=== PATIENT | male | born 1945 | race Caucasian/White ===

== ENCOUNTER 2018-01-21 22:26 | Inpatient (IN) | payer MEDICARE, MEDICAID ==
--- NOTE | 2018-01-21 22:55 | ED Physician Chart ---
ED Chief Complaint/HPI - Patient Information Date Seen:: 01/21/18 Time Seen:: 22:30 Chief Complaint:: Agitation History of Present Illness:: onset x 2 days of agitation and aggressive behavior; no report of trauma, SIs, H /As, S/T, neck pain, C/P, SOB, Abd. Pain, A/N/V/D/C, fever, chills, or urinary s /s Allergies:: Allergies Allergy/AdvReac Type Severity Reaction Status Date / Time hydrocodone Allergy Verified 01/21/18 22:42 Vitals:: Vital Signs - 8 hr 01/21/18 22:30 Temp 98 F HR 72 RR 18 BP 132/76 O2 Sat % 97 Historian:: Patient, EMS Review:: Nurse's Note Reviewed, Old Chart Reviewed, EMS run form Reviewed ED Review of Systems - Review of Systems General/Constitutional: No fever, No chills, No weight loss, No weakness, No diaphoresis, No edema, No loss of appetite Skin: No skin lesions, No rash, No bruising Head: No headache, No light-headedness Eyes: No loss of vision, No pain, No diplopia ENT: No earache, No nasal drainage, No sore throat, No tinnitus Neck: No neck pain, No swelling, No thyromegaly, No stiffness, No mass noted Cardio Vascular: No chest pain, No palpitations, No PND, No orthopnea, No edema Pulmonary: No SOB, No cough, No sputum, No wheezing GI: No nausea, No vomiting, No diarrhea, No pain, No melena, No hematochezia, No constipation, No hematemesis G/U: No dysuria, No frequency, No hematuria, No nacturia Musculoskeletal: No bone or joint pain, No back pain, No muscle pain Endocrine: No polyuria, No polydipsia Psychiatric: Prior psych history, Depression, Anxiety, No suicidal ideation, No homicidal ideation, No auditory hallucination, No visual hallucination Hematopoietic: No bruising, No lymphadenopathy Allergic/Immuno: No urticaria, No angioedema Neurological: No syncope, No focal symptoms, No weakness, No paresthesia, No headache, No seizure, No dizziness, No confusion, No vertigo ED Past Medical History - Past Medical History Obtainable: Yes Past Medical History: No significant medical hx, Dyslipidemia Family History: HTN Social History: Non Smoker, No Alcohol, No Drug Use, Single, Care Facility Surgical History: None Psychiatricy History: Depression, Bipolar Medication: Reviewed Family Medical History - Family Member Mother History Unknown: Yes ED Physical Exam - Physical Examination General/Constitutional: Awake, Well-developed, well-nourished, Alert, No distress, GCS 15, Non-toxic appearing, Ambulatory Head: Atraumatic Eyes: Lids, conjuctiva normal, PERRL, EOMI Skin: Nl inspection, No rash, No skin lesions, No ecchymosis, Well hydrated, No lymphadenopathy ENMT: External ears, nose nl, TM canals nl, Nasal exam nl, Lips, teeth, gums nl , Oropharynx nl, Tonsils nl Neck: Nontender, Full ROM w/o pain, No JVD, No nuchal rigidity, No bruit, No mass, No stridor Respiratory: Nl effort/Exclusion, Clear to Auscultation, No Wheeze/Rhonchi/Rales Cardio Vascular: RRR, No murmur, gallop, rubs, NL S1 S2, Carotid/Femoral/Distal pulses equal bilaterally GI: No tenderness/rebounding/guarding, No organomegaly, No hernia, Normal BS's, Nondistended, No mass/bruits, No McBurney tenderness : No CVA tenderness Extremities: No tenderness or effusion, Full ROM, normal strength in all extremities, No edema, Normal digits & nails Neuro/Psych: Alert/oriented, DTR's symmetric, Normal sensory exam, Normal motor strength, Judgement/insight normal, Mood normal, Normal gait, No focal deficits Other Neuro/Psych comments:: + Psychomotor Agitation; no SIs; Mood/Affect: Labile Misc: Normal back, No paraspinal tenderness ED Labs/Radiology/EKG Results - Lab Results Comments:: Reviewed - EKG Interpretations EKG Time:: 22:52 Rate & Rhythm: 78; NSR Comments:: non-specific st-t changes ED Septic Shock - . Is Septic Shock (SBP<90, OR Lactate>4 mmol\L) present?: No - <6hrs of presentation: Vital Signs: Vital Signs - 8 hr 01/21/18 22:30 Temp 98 F HR 72 RR 18 BP 132/76 O2 Sat % 97 ED Reassessment (Disposition) - Reassessment Reassessment Condition:: Improved - Diagnosis Diagnosis:: Agitation; Medical Clearance; Psychosis; Bipolar Disorder - Aftercare/Follow up Instructions Aftercare/Follow-Up Instructions:: Counseled pt regarding lab results/diagnosis & need follow up, Counseled pt & family regarding lab results/diagnosis & need follow up - Patient Disposition Discharge/Transfer:: Acute Care w/in this hosp Admitted to:: [facility] Condition at Disposition:: Stable, Improved
[2018-01-21 23:14] LABS: % BASOPHILS 1.4 % (0.0-2.0); % EOSINOPHILS 2.5 % (0.0-5.0); % LYMPHOCYTES 25.3 % (20.0-50.0); % MONOCYTES 6.1 % (2.0-10.0); % NEUTROPHILS 64.7 % (40.0-80.0); BASOPHILE ABSOLUTE 0.1 Th/cumm (0-0.2); EOSINOPHILE ABSOLUTE 0.2 Th/cmm (0.1-0.4); HEMATOCRIT 39.5 % (41.0-60); HEMOGLOBIN 13.5 gm/dL (12-16); LYMPHOCYTE ABSOLUTE 1.7 Th/cmm (1.5-3.0); MEAN CELL VOLUME 89.3 fl (80-99); MEAN CORPUSCULAR HEMOGLOBIN 30.5 pg (27.0-31.0); MEAN CORPUSCULAR HGB CONC 34.1 pg (28.0-36.0); MEAN PLATELET VOLUME 7.2 fl; MONOCYTE ABSOLUTE 0.4 Th/cmm (0.3-1.0); NEUTROPHILE ABSOLUTE 4.3 Th/cmm (1.8-8.0); PLATELET COUNT 311 Th/cmm (150-400); RED BLOOD COUNT 4.43 Mil/cmm (3.80-5.80); RED CELL DISTRIBUTION WIDTH 14.8 % (11.5-20.0); WHITE BLOOD COUNT 6.7 Th/cmm (4.8-10.8)
[2018-01-21 23:26] LABS: ALB/GLOB RATIO 1.1 (1.0-1.8); ALBUMIN 4.5 gm/dL (4.2-5.5); ALKALINE PHOSPHATASE 173 U/L (34-104); ANION GAP 12.9 (7.0-16.0); BILIRUBIN,TOTAL 0.4 mg/dL (0.3-1.0); BUN - UREA NITROGEN 19 mg/dL (7-25); CARBON DIOXIDE 26.7 mEq/L (21.0-31.0); CHLORIDE 100 mEq/L (98-107); CREATININE - SERUM 0.9 mg/dL (0.7-1.3); GLUCOSE 108 mg/dL (70-105); POTASSIUM SERUM 3.6 mEq/L (3.5-5.1); SGOT 19 U/L (13-39); SGPT/ALT 24 U/L (7-52); SODIUM SERUM 136 mEq/L (136-145); TOTAL PROTEIN,SERUM 8.5 gm/dL (6.0-8.3)
[2018-01-21 23:27] LABS: ACETAMINOPHEN < 10.0 ug/mL (10.0-30.0); CHOLESTEROL 105 mg/dL (<200); HDL -HIGH DENSITY LIPOPROTEIN 29 mg/dL (23-92); SALICYLATES (ASPIRIN) < 25.0 mg/L (30.0-100.0); TRIGLYCERIDES 208 mg/dL (<150)
[2018-01-22 00:40] VITALS: BP 134/74
[2018-01-22] MEDS ORDERED: Magnesium Hydroxide (MOM) 30 mL UDC PO PRN ×2 (00:42→02:14)
[2018-01-22] MEDS ORDERED: Maalox 30 mL Cup PO PRN (00:42)
[2018-01-22] MEDS ORDERED: Non-Formulary Item 1 EA (Clonidine Hcl [Clonidine Hcl Er] 0.1 MG) PO PRN (02:14)
[2018-01-22] MEDS ORDERED: [UNRECOGNIZED DRUG - OTHER] PO SCH (09:00)
[2018-01-22] MEDS ORDERED: Non-Formulary Item 1 EA (Atorvastatin Calcium [Lipitor] 40 MG) PO SCH (09:00)
[2018-01-22] MEDS ORDERED: BORAGE PO SCH (09:00)
[2018-01-22] MEDS ORDERED: FISH OIL PO SCH (09:00)
[2018-01-22] MEDS ORDERED: FLAX PO SCH (09:00)
[2018-01-22] MEDS: Multivitamin Tab PO SCH (09:12)
--- NOTE | 2018-01-22 12:29 | History & Physical ---
ADMIT DATE: 01/22/2018 PATIENT'S IDENTIFICATION: A 72-year-old male. CHIEF COMPLAINT: "I am fine." HISTORY SOURCE: Talking to the Emergency Room MD, reviewing the chart, as well as reviewing the long-term records. HISTORY OF PRESENT ILLNESS: A 72-year-old [place] male who is a resident of [facility], brought into the Emergency Room at [facility] for increasing agitation with aggressive behavior. The patient was worked up in the ER and subsequently admitted to Geropsych Unit under Dr. Cordova's care. PAST MEDICAL HISTORY: Remarkable for: 1. Hypertension. 2. CVA with left-sided weakness. 3. DJD. 4. History of GERD. 5. Dysphagia after cerebrovascular accident. 6. Hyperlipidemia. 7. Depression. 8. Psychotic disorder. MEDICATIONS AT HOME: The patient is taking atorvastatin, amlodipine, clonidine, Colace, duloxetine, Pepcid, gabapentin, milk of magnesia, multivitamin, nitroglycerin, omega 3, promethazine DM, Tums, and Tylenol. ALLERGIES: The patient is allergic to HYDROCODONE. SOCIAL HISTORY: He is a resident of long-term. The patient does not smoke, does not drink. FAMILY MEDICAL HISTORY: Remarkable for hypertension. REVIEW OF SYSTEMS: Limited, though the patient denies any chest pain, shortness of breath, palpitation, dizziness, nausea, vomiting, diarrhea. No hematuria, hematochezia, melena. No history of any seizure or syncopal episode. PHYSICAL EXAMINATION: GENERAL: A 72-year-old alert, awake, lying in the bed without any acute distress. VITAL SIGNS: Temperature 98, pulse is 72, respiratory rate is 18, blood pressure 132/76. HEENT: Normocephalic, atraumatic. Extraocular muscles are intact. Tongue was pink and coated. Poor dentition noted. No oral lesions noted. No exudate. No sinus tenderness. NECK: Supple, no JVD, no hepatojugular reflex. No lymphadenopathy, thyromegaly, or carotid bruit. HEART: Both heart sounds are regular. Grade 2/6 systolic murmur noted. CHEST AND LUNGS: Equal in expansion, no expiratory wheezing. ABDOMEN: Soft. No guarding, no rigidity. Liver and spleen are not palpable. No palpable mass. EXTREMITIES: No edema, no cyanosis. Peripheral pulses are +1. No calf tenderness noted. NEUROLOGIC: Alert, awake, follows commands. Mild facial droop noted on the left side. Left-sided weakness and spasticity noted. Hyperreflexia on the left side noted. Babinski's, left foot is going down. AVAILABLE DIAGNOSTIC DATA: Remarkable for white count of 6.7, hemoglobin 13.5, platelet count 311. Chemistry panels are within normal limit. Total protein of 8.5. triglycerides of 208, TSH 0.81, salicylate level and Tylenol level was less than 25 and 110. EKG is normal sinus rhythm with Q-wave in anterior leads consistent with old infarct noted. Chest x-ray is unavailable for my review. CLINICAL IMPRESSIONS: 1. Psychotic disorder exacerbation. 2. Hypertension. 3. Hyperlipidemia. 4. Coronary artery disease. 5. History of cerebrovascular accident with left-sided weakness. 6. Degenerative joint disease. 7. Dysphagia. 8. Depression. 9. High risk for fall. 10. Slightly elevated total protein. PLAN: 1. Psychiatric evaluation and management deferred to psychiatrist. 2. The patient is to resume his home medications for medical problem, which includes amlodipine, atorvastatin, clonidine, duloxetine, gabapentin along with p.r.n. nitroglycerin along with symptoms management and famotidine for GERD. Psychiatric evaluation and management has been deferred to psychiatrist. Fall precaution will be given. Dysphagia diet will be provided and we will continue to follow this patient during the stay in the hospital. I sincerely thank you, Dr. Cordova, for giving me the opportunity to participate in patient of yours. [facility]# [id number]
[2018-01-22] MEDS ORDERED: Menthol/Methyl Salicylate Cream TP PRN (14:19)
--- NOTE | 2018-01-22 19:37 | Psychiatric Evaluation ---
DATE OF SERVICE: 01/22/2018 JUSTIFICATION FOR HOSPITALIZATION: Agitation, aggressive behaviors at the care home. CHIEF COMPLAINT: "I don't know why I am here." HISTORY OF PRESENT ILLNESS: A 72-year-old male, quite confused, AO to name. He knows he is in the hospital. He does not know the year, the month or why he is here. The patient states he feels "sad," attesting to poor sleep, fair appetite. He is eating when I see him. Per nursing notes, he has been somewhat calm, but confused. Slept about 5 hours. No behavioral outbursts. The patient coming in due to increased agitation. correction unable to care for him because of his agitation. PAST PSYCHIATRIC HISTORY: It seems he is demented. FAMILY HISTORY: Noncontributory. SOCIAL HISTORY: Born in [facility]. . No kids. MEDICATIONS: Noted. MENTAL STATUS EXAMINATION: Stated age. Fair eye contact. Mood "okay." Affect flat. Thought processes were disengaged and confused. No SI, no HI. No current psychotic symptoms. Insight and judgment seemed diminished. Poor impulse control. PROVISIONAL DIAGNOSES: Concerns for dementia; mood, unspecified; anxiety, unspecified; psychosis, unspecified. Under medical, please see full H and P. ESTIMATED LENGTH OF STAY: 7-10 days. Pain, no pain at this time. ASSESSMENT: The patient is aggressive, combative, impulsive, and unpredictable. PLAN: Continue to monitor, increase collateral. Monitor for any behavioral outbursts. CONDITIONS FOR DISCHARGE: Improved mood, improved affect, cessation of any SI or HI, which he does not exhibit at this time. Better control of any agitation. [facility]# [id number]
[2018-01-22] MEDS ORDERED: Non-Formulary Item 1 EA (Gabapentin [Gabapentin] 600 MG) PO SCH (21:00)
[2018-01-23] MEDS: Multivitamin Tab PO SCH (08:35)
[2018-01-23] MEDS: Fish Oil 1,000 MG SGL PO SCH (08:39)
--- NOTE | 2018-01-23 18:06 | Progress Notes ---
DATE: 01/23/2018 SUBJECTIVE: The patient in the hospital, he has been combative, agitated. He knows he is in the hospital. He does not really know why he is in the hospital. He does know the year, the month. He appears quite disoriented, distracted, making some nonsensical comments. Slept for about 6-1/2 hours, noted to be calm right now, but intermittently confused, remains impulsive, unpredictable, mostly in his room. ASSESSMENT: The patient remains symptomatic, can become agitated, highly impulsive, confused. Medications were noted. PLAN: We will continue to monitor. Ongoing safety concerns. Given ongoing symptoms, he is not currently safe for a lower level of care. [facility]# [id number]
[2018-01-24] MEDS: Fish Oil 1,000 MG SGL PO SCH (08:49)
[2018-01-24] MEDS: Multivitamin Tab PO SCH (08:50)
--- NOTE | 2018-01-24 09:28 | Progress Notes ---
DATE: 01/23/2018 IDENTIFICATION: The patient is a 72-year-old male. SUBJECTIVE: The patient seen and examined. The patient is lying in the bed. On exam, no new event. Discussed with nursing staff about the treatment plan. OBJECTIVE: VITAL SIGNS: Temperature 98.5, pulse 72, respiratory rate 18, blood pressure 146/90. HEENT: No facial asymmetry. NECK: Supple, no JVD. HEART: Regular. CHEST AND LUNGS: Equal in expansion, no expiratory wheezing. ABDOMEN: Soft. No guarding. No rigidity. Bowel sounds are present. No palpable mass. EXTREMITIES: No edema. NEUROLOGIC: Left-sided weakness noted. CLINICAL IMPRESSION: 1. Cerebrovascular accident with left-sided weakness. 2. Psychotic disorder exacerbation. 3. Hypertension. 4. Hyperlipidemia. 5. Degenerative joint disease. 6. Dysphagia. 7. High risk for fall. PLAN: 1. Psych medication and follow up. 2. Antihypertensive medicine. 3. Statin. 4. CVA prophylaxis. 5. Dysphagia diet. 6. General nursing care. 7. Symptoms management. 8. Medication management. 9. Care plan reviewed and discussed with staff. JOB# [id number]
--- NOTE | 2018-01-24 23:32 | Progress Notes ---
DATE: 01/24/2018 Case was discussed with staff of the patient, reviewed records. Covering for Dr. Cordova. This is a 72-year-old male who was admitted on 01/22/2018. The patient has no idea why he was here. He was sent here because of agitation and aggressive behavior at the alf facility. The patient was oriented to name only. He knows he was in the hospital. He does not know the year, the month, why he is here. He felt sad, poor sleep. According to the nursing, has been somewhat calm, but confused. He has anger outbursts. When I tried talk to the patient, unable to carry on a conversation or make safe plan for self-care. He continues to have episodes of feeling angry, irritable. Dr. Cordova have him on Cymbalta 30 mg twice a day. He is on Neurontin 600 mg at bedtime and 300 mg twice a day with no side effects, no sedation, no nausea. We will continue to work with the patient in group therapy, milieu therapy, adjust medication as needed. JOB# [id number]
[2018-01-25] MEDS: Fish Oil 1,000 MG SGL PO SCH (09:21)
[2018-01-25] MEDS: Multivitamin Tab PO SCH (09:22)
--- NOTE | 2018-01-25 16:47 | Progress Notes ---
DATE: 01/25/2018 SUBJECTIVE: The patient seen and examined. The patient is lying in the bed. The patient has no new event. Discussed with nursing staff about the treatment plan. OBJECTIVE: VITAL SIGNS: Temperature 98.8, pulse is 82, respiratory rate 18, and blood pressure 122/74. HEENT: No facial asymmetry. NECK: Supple, no JVD. HEART: Regular. CHEST AND LUNGS: Equal in expansion, no expiratory wheezing. ABDOMEN: Soft, no guarding or rigidity. Bowel sounds present. No palpable mass. EXTREMITIES: No edema. NEUROLOGIC: Left-sided weakness noted. CLINICAL IMPRESSION: 1. Cerebrovascular accident with left-sided weakness. 2. Depression. 3. Hypertension. 4. Hyperlipidemia. 5. Coronary artery disease. 6. Degenerative joint disease. 7. Dysphagia. 8. High risk for fall. PLAN: 1. Psych medications. 2. Antihypertensive medicine. 3. Statin. 4. CVA prophylaxis. 5. Dysphagia diet. 6. General nursing care. 7. We will continue to follow this patient during the stay in the hospital. JOB# [id number]
--- NOTE | 2018-01-25 21:51 | Progress Notes ---
DATE: 01/25/[address] Cordova. Case was discussed with staff of the patient. The patient is isolating in his room, does not say much patient. The patient has episodes of irritability, agitation. He is not able to tell me the exact story. He has been confused with some anger outbursts. Continues to be unpredictable and impulsive. He is compliant with the medication with no side effects, no sedation, no nausea. We will continue the patient in group therapy, milieu therapy, and adjust medications as needed. JOB# [id number]
[2018-01-26] MEDS: Fish Oil 1,000 MG SGL PO SCH (09:07)
[2018-01-26] MEDS: Multivitamin Tab PO SCH (09:08)
--- NOTE | 2018-01-26 10:52 | Progress Notes ---
DATE: 01/26/2018 SUBJECTIVE: The patient is seen and examined. The patient is lying in the bed. Discussed with nursing staff about their concern. The patient remained hemodynamically stable. The patient denies any chest pain, shortness of breath, palpitation, dizziness, nausea or vomiting. OBJECTIVE: VITAL SIGNS: Temperature 98.5, pulse is 68, respiratory rate 18, blood pressure 125/77. HEENT: No facial asymmetry. NECK: Supple, no JVD. HEART: Regular. CHEST AND LUNGS: Equal in expansion, no expiratory wheezing. ABDOMEN: Soft, no guarding, no rigidity. Bowel sounds are present. EXTREMITIES: No edema. NEUROLOGIC: Remarkable for left-sided weakness noted. CLINICAL IMPRESSION: 1. Psychiatric disorder exacerbation. 2. Hypertension. 3. Cerebrovascular accident with left-sided weakness. 4. Dysphagia after cerebrovascular accident. 5. Hyperlipidemia. 6. Degenerative joint disease. 7. Coronary artery disease. PLAN: 1. Psychiatric evaluation and management deferred to psychiatrist. 2. Dysphagia diet. 3. Fall precautions. 4. General nursing care. 5. Continue current medication for hypertension, hyperlipidemia, and coronary artery disease. 6. We will continue to follow this patient during the stay in the hospital. JOB# [id number]
--- NOTE | 2018-01-26 11:13 | Progress Notes ---
DATE: 01/26/2018 SUBJECTIVE: The patient is currently in the hospital, still remains confused, not really answering any questions. Noted to have some irritability over the weekend, impulsive, unpredictable, mostly withdrawn, stays to himself. Slept about 7 hours last night, seems to be only oriented to name, only tells me his name. He stares blankly, for example, when I asked him where he is or why he is here. The patient observed to be talking to himself per staff, responding to internal stimuli. I did review notes from the weekend. ASSESSMENT: The patient remains symptomatic, seems to be confused, highly disoriented. PLAN: We will initiate Namenda to try to tamper down behaviors, help memory decline. JOB# [id number]
[2018-01-27] MEDS: Fish Oil 1,000 MG SGL PO SCH (09:40)
[2018-01-27] MEDS: Multivitamin Tab PO SCH (09:41)
--- NOTE | 2018-01-27 23:12 | Progress Notes ---
DATE: 01/27/2018 SUBJECTIVE: The patient in the hospital, still remains pretty disoriented, confused, not answering questions appropriately. He is working with physical therapy, requiring quite a bit of prompting. No outburst. No agitation, no escalation of behaviors. Slept for about 7 hours, noted to be labile, still easily agitated, mumbling to self. MEDICATIONS: Noted. ASSESSMENT: The patient remains symptomatic, still with some outbursts, ongoing concerns about safety, currently on Namenda, gabapentin and Cymbalta. VITAL SIGNS: Vitals were reviewed. 105/74 blood pressure, pulse of 84. PLAN: We will continue to monitor, titrate and adjust medications. [facility]# [id number]
[2018-01-28] MEDS: Multivitamin Tab PO SCH (08:51)
[2018-01-28] MEDS: Fish Oil 1,000 MG SGL PO SCH (08:52)
--- NOTE | 2018-01-28 09:35 | Progress Notes ---
DATE: 01/28/2018 SUBJECTIVE: The patient seen, chart reviewed, discussed with staff. Today 01/28/2018, very confused, AO to name, does not know where he is or what is going on. The patient is calm and pleasant upon approach, but easily agitated, can be aggressive, highly impulsive and unpredictable. Staff noting he has been calmer since he has been here, but still labile, demanding symptoms, talking to himself. Medications were noted. Sleeping fairly well at night, eating with some prompting, wearing a diaper. ASSESSMENT: The patient remains symptomatic, still impulsive, highly unpredictable, currently on Cymbalta, Namenda. Vitals were noted. Blood pressure 130/88. ASSESSMENT: The patient remains symptomatic, ongoing safety concerns labile, confused. PLAN: We will continue to monitor and add Aricept given ongoing symptoms. He is not safe for discharge. JOB# [id number]
[2018-01-29] MEDS: Fish Oil 1,000 MG SGL PO SCH (09:53)
[2018-01-29] MEDS: Multivitamin Tab PO SCH (09:59)
--- NOTE | 2018-01-29 18:05 | Progress Notes ---
DATE: SUBJECTIVE: A 72-year-old male patient seen and examined. The patient is lying in the bed though patient is very pleasant to talk. PHYSICAL EXAMINATION: VITAL SIGNS: On today's exam temperature 97.2, pulse 66, respiratory rate 18, blood pressure 102/65. HEENT: No facial asymmetry. NECK: Supple, no JVD. HEART: Regular. CHEST AND LUNG: Equal in expansion, no expiratory wheezing. ABDOMEN: Soft. No guarding, no rigidity. Bowel sounds are present. No palpable mass. EXTREMITIES: No edema. NEUROLOGIC: Left-sided weakness noted. CLINICAL IMPRESSION: 1. Cerebrovascular accident with left-sided weakness. 2. Hypertension. 3. Coronary artery disease. 4. Hyperlipidemia. 5. Psychotic disorder. 6. Depression. 7. Degenerative joint disease. PLAN: 1. Psychotic evaluation and management deferred to psychiatrist. 2. Continue to monitor blood pressure. 3. Antihypertensive medicine. 4. Statin. 5. CVA prophylaxis. 6. Dysphagia diet. 7. Fall precaution. 8. General nursing care. 9. Care plan reviewed with staff. JOB# [id number]
--- NOTE | 2018-01-29 23:18 | Progress Notes ---
DATE: SUBJECTIVE: The patient was seen, chart reviewed, discussed with staff. The patient is very confused, disoriented, does not remember being agitated, but staff noting he remains labile, still easily agitated, withdrawn, mostly in his room. Again mostly in room, talking to self. He has been compliant with medications. He remains impulsive, unpredictable, sleeping well, needing some prompting, wearing a diaper. Medications were noted. ASSESSMENT: The patient remains symptomatic, highly impulsive, unpredictable. Currently on Aricept, Cymbalta, gabapentin, and Namenda. We will consider Depakote if behaviors do not resolve. We will continue to monitor her recent dose initiation of Aricept. JOB# [id number]
[2018-01-30] MEDS: Multivitamin Tab PO SCH (09:12)
[2018-01-30] MEDS: Fish Oil 1,000 MG SGL PO SCH (09:12)
--- NOTE | 2018-01-31 03:02 | Progress Notes ---
DATE: 01/30/2018 SUBJECTIVE: The patient was seen today on 01/30/2018. The patient is confused, disoriented, AO to name only. Remains easily agitated, labile at times talking to himself. The patient mostly in his room, highly withdrawn, mostly stays to himself. Per psych social worker note, the patient does have a sister, believe not been able to get in touch with her. ASSESSMENT: The patient remains symptomatic, still disoriented at times, gets agitated, unruly. PLAN: We will continue to monitor. We will add dosings of medications. We will try to tamper down his behaviors, calm him down. He is currently on Aricept, also Namenda. We will monitor closely. JOB# [id number]
[2018-01-31] MEDS: Fish Oil 1,000 MG SGL PO SCH (09:41)
[2018-01-31] MEDS: Multivitamin Tab PO SCH (09:41)
--- NOTE | 2018-02-01 00:40 | Progress Notes ---
DATE: THE PATIENT'S IDENTIFICATION: A 72-year-old male. SUBJECTIVE: The patient seen and examined. The patient is lying in the bed. No new event. Available nurse's note has been reviewed and discussed with them about the concern. OBJECTIVE: VITAL SIGNS: Temperature 98, pulse 74, respiratory rate 18, blood pressure 134/80. HEENT: No facial asymmetry. NECK: Supple, no JVD. HEART: Regular. Grade 2/6 systolic murmur noted. CHEST AND LUNGS: Equal in expansion, no expiratory wheezing. ABDOMEN: Soft, no guarding, no rigidity. Bowel sounds are present. No palpable mass. EXTREMITIES: No edema. NEUROLOGIC: Left-sided weakness. CLINICAL IMPRESSION: 1. Hypertension. 2. Hyperlipidemia. 3. Coronary artery disease. 4. Cerebrovascular accident with left-sided weakness. 5. Dysphagia after cerebrovascular accident effect. 6. Degenerative joint disease. 7. High risk for fall. PLAN: 1. Antihypertensive medicine with Norvasc. 2. Lipitor for hyperlipidemia. 3. Continue Aricept and Cymbalta as prescribed. 4. Continue to provide fall precautions, nutritional support, general nursing care along with symptoms management as well. 5. Care plan reviewed and discussed with staff. JOB# [id number]
--- NOTE | 2018-02-01 08:45 | Progress Notes ---
DATE: 01/31/2018 SUBJECTIVE: The patient was seen and evaluated. The patient's chart reviewed. This is Dr. Dobbs covering for Dr. Cordova. IDENTIFYING DATA: A 72-year-old male, who was brought in here quite confused, oriented to only name, he knows that he is in the hospital, but did not know the time, the year or month and diagnosed with dementia. CURRENT MEDICATIONS: The patient is on amlodipine, ____, benazepril 10 mg q. daily, Cymbalta 30 mg b.i.d., gabapentin 300 mg b.i.d., lorazepam as needed, Namenda 5 mg daily, multivitamins, Ambien as needed. Overnight nursing staff reported that the patient has been mostly disengaged, difficult to follow simple commands. Today on [id number] evaluation, the patient believes this is 1997, easily agitated, labile and observed to be talking to himself. MENTAL STATUS EXAMINATION: Still remains symptomatic, disoriented ____ believes this is 1997, suspicious. ASSESSMENT AND PLAN: Js Francisco has history of severe dementia with behavior disturbances, unclear how much it is coming from a previous history of cerebrovascular accident. We will continue with primary psychiatrist's treatment plan and goals of medications, had recently been augmented to target the patient's ongoing symptoms. We will continue monitoring and evaluating. JOB# [id number]
[2018-02-01] MEDS: Fish Oil 1,000 MG SGL PO SCH (09:21)
[2018-02-01] MEDS: Multivitamin Tab PO SCH (09:22)
--- NOTE | 2018-02-01 18:13 | Progress Notes ---
DATE: 02/01/2018 SUBJECTIVE: The patient was seen and evaluated. The patient's chart reviewed. Overnight, the nursing staff reported that the patient continued to be easily agitated and talking to himself. Today on [id number] evaluation, the patient is extremely irritable upon interview, easily agitated, reported nonsensical comments such as "my sister used to make me sit up and then my daughter used to make me sit up, and when attempted to discuss what he meant by that he becomes more easily agitated. MENTAL STATUS EXAMINATION: Disorganized, disoriented. ASSESSMENT AND PLAN: The patient continues to be disorganized. We will continue with the current medication regimens and adjustments of the Aricept and Namenda to continue to target the patient's behavior disturbances from his dementia. [facility]# [id number]
[2018-02-02] MEDS: Fish Oil 1,000 MG SGL PO SCH (09:00)
[2018-02-02] MEDS: Multivitamin Tab PO SCH (09:01)
--- NOTE | 2018-02-02 11:17 | Progress Notes ---
DATE: PATIENT'S IDENTIFICATION: A 72-year-old male. SUBJECTIVE: The patient seen and examined. The patient lying in the bed. No new event. OBJECTIVE: VITAL SIGNS: Temperature 98.4, pulse is 82, respiratory rate 18, blood pressure 108/74. HEENT: No facial asymmetry. Poor dentition noted. NECK: Supple. No JVD. HEART: Regular. CHEST AND LUNG: Equal in expansion, no expiratory wheezing. ABDOMEN: Soft. No guarding, no rigidity. Bowel sounds present. No palpable mass. EXTREMITIES: No edema. NEUROLOGIC: Alert, awake, follows commands. for left-sided weakness. CLINICAL IMPRESSION: 1. Dysphagia and dysarthria after cerebrovascular accident. 2. Left-sided weakness. 3. Coronary artery disease. 4. Hypertension. 5. Hyperlipidemia. 6. Degenerative joint disease. 7. High risk for fall. PLAN: 1. Proceed with speech therapy for dysphagia treatment. 2. Antihypertensive medicine. 3. Statin. 4. CV prophylaxis. 5. Fall precaution. 6. General nursing care. 7. Follow lab. 8. We will continue to follow this patient during the stay in the hospital. JOB# [id number]
--- NOTE | 2018-02-02 16:16 | Progress Notes ---
DATE: 02/02/2018 SUBJECTIVE: The patient remains easily agitated, at times yelling out, yelling for sisters. Staff noting he has been somewhat calmer, less yelling episodes. Dr. Dobbs over the weekend noted he remains nonsensical, bizarre statements. On [id number], the patient is AO to name, not place. When I asked him where he is, he states I want to change here. He does not recognize he is in the hospital. He is not sure about the year or the month. ASSESSMENT: The patient is calmer, somewhat cooperative, still with some yelling out, but staff noting he seems to be showing some signs of improvement. PLAN: We will continue to monitor. Continue Cymbalta, gabapentin, and Namenda. Recently, I started him on Aricept. We will continue to monitor. JOB# [id number]
[2018-02-03] MEDS: Fish Oil 1,000 MG SGL PO SCH (09:05)
[2018-02-03] MEDS: Multivitamin Tab PO SCH (09:06)
--- NOTE | 2018-02-03 19:56 | Discharge Summary ---
DATE OF DISCHARGE: 02/03/2018 JUSTIFICATION FOR HOSPITALIZATION: Agitation and aggressive behaviors. HISTORY OF PRESENT ILLNESS: A 72-year-old male, confused, likely demented, poorly oriented, does not know why he is here, attest to sadness. Apparently [facility] out [facility] the [facility], was very upset, angry. He has been calm in the unit upon initial presentation. PAST PSYCHIATRIC HISTORY: Likely dementia. SOCIAL HISTORY: Born in [facility], . Good social support, family visits. MEDICATIONS: Noted. MENTAL STATUS EXAMINATION: Stated age, fair eye contact. Please see full psych eval for further details. PROVISIONAL DIAGNOSIS: Likely dementia, dementia with behaviors; mood, unspecified; and anxiety, unspecified. MEDICAL: Please see full H and P. HOSPITAL COURSE: After initial assessment, the patient was restarted on medications including atorvastatin, docusate, Aricept, Cymbalta, Namenda, and gabapentin. His mood improved, affect improved. He was calmer, no longer moaning. No aggressive behaviors. His confusion remained. I spoke with family. Sister Adri noting that he appeared improved. CONDITION UPON DISCHARGE: Improved, better ADLs, good eye contact, allowing ADLs. Mood "okay." Affect broad. Thought processes were confused. No SI, no HI, no psychosis. Insight and judgment seem somewhat improved, better impulse control. DISCHARGE DIAGNOSES: Dementia, dementia with behaviors; anxiety, unspecified; mood, unspecified. MEDICAL: Please see full H and P. THE PATIENT'S STRENGTHS: Good response to treatment, good family support. PROGNOSIS: The patient follows up with outpatient mental health services and remains compliant with treatment. Prognosis will improve, otherwise guarded. [facility]# [id number]
== END 2018-02-03 16:30 | DRG 884 ==
LOC: ER 22:26 → GERO 01-22 00:14
PROVIDERS: ADMIT Psychiatry & Neurology Psychiatry; ATTEND Psychiatry & Neurology Psychiatry
DX: F03.91 Unspecified dementia, unspecified severity, with behavioral disturbance (principal); F23 Brief psychotic disorder; F39 Unspecified mood [affective] disorder; F41.9 Anxiety disorder, unspecified; I10 Essential (primary) hypertension; E78.5 Hyperlipidemia, unspecified; M19.90 Unspecified osteoarthritis, unspecified site; R13.19 Other dysphagia; K21.9 Gastro-esophageal reflux disease without esophagitis; I25.10 Atherosclerotic heart disease of native coronary artery without angina pectoris; I69.954 Hemiplegia and hemiparesis following unspecified cerebrovascular disease affecting left non-dominant side; Z88.6 Allergy status to analgesic agent; Z82.49 Family history of ischemic heart disease and other diseases of the circulatory system; Z91.81 History of falling
CPT/HCPCS: 36415-UA; 80053-TC; 80061-TC; 80320-TC; 80329-TC; 82948-90; 83036-90; 84443-TC; 84484-TC; 85025-TC; 86592-TC; 93005; 97530; X3401; X3904; X4304; Z7610